=== PATIENT | female | born 1985 ===

== ENCOUNTER 2018-02-18 02:16 | Inpatient (IN) | payer OTHER ==
[2018-02-18] MEDS ORDERED: PENICILLIN 5 MU in NA CHLORIDE 0.9% 100 ML IV ONE (03:28)
[2018-02-18] MEDS ORDERED: PENICILLIN G POT 5 MU/100 ML BAG IV ONE (03:40)
[2018-02-18 04:07] LABS: RPR Titer ND
[2018-02-18 04:11] LABS: Absolute Lymphocytes (CBC) 2.1 K/uL (0.7-4.9); Absolute Monocytes 0.8 K/uL (0.1-1.3); Absolute Neutrophil 11.8 K/uL (1.8-8.0); Basophils % 0.4 % (0-1.3); Eosinophils % 0.9 % (0-4.4); Hematocrit 34.7 % (36.0-45.0); MCH 28.4 pg (27.0-35.0); MCV 83.9 fL (80-100); MPV 8.3 fL (7.6-11.3); Monocytes % 5.6 % (3.3-12.3); RBC Red Blood Cell Count 4.13 M/uL (3.86-4.86)
[2018-02-18 04:21] VITALS: BP 119/81; TEMP 97.8; BMI 36.8
[2018-02-18 04:21] LABS: Glucose Level 94 mg/dL (74-106)
[2018-02-18] MEDS ORDERED: OXYTOCIN/LR 20 UNIT/1,000 ML BAG IV SCH (05:30)
[2018-02-18] MEDS ORDERED: Ringers Lactate 1,000 ML IV ONE (05:45)
[2018-02-18] MEDS ORDERED: Ringers Lactate 1,000 ML IV SCH (07:00)
[2018-02-18] MEDS ORDERED: BETAMET ACET/BETAMET NA PH 6 MG/ML VIAL IM ONE (07:28)
[2018-02-18] MEDS ORDERED: PENICILLIN 2.5 MU in NA CHLORIDE 0.9% 100 ML IV SCH ×4 (07:40)
[2018-02-18] MEDS ORDERED: BUTORPHANOL 1 MG/ML INJ IV ONE (08:15)
--- NOTE | 2018-02-18 09:11 | RAD REPORT ---
EXAM DESCRIPTION: US - OB Complete - 02/18/2018 3:39 am CLINICAL HISTORY: Premature rupture of membranes age. COMPARISON: No comparisons FINDINGS: A single cephalic presenting gestation is identified. Heart rate normal. The intracranial contents and spine are grossly normal. A normal stomach bubble is noted. The f etal kidneys, three-vessel cord, four-chamber view the heart and bladder not well assessed due to positioning and advanced gestational age. measurements are as follows: BPD:8.7 Centimeters 35 weeks 0 days HC:32.4 Centimeters 36 weeks 5 days AC:30.9 Centimeters 34 weeks 6 days HL:5.6 Centimeters 32 weeks 5 days FL:6.3 Centimeters 32 weeks 5 days The estimated gestational age (EGA) is 34 weeks 3 days with an DANAE of03/29/2018. The placenta is grade 1-2, maternal right in location. No placenta previa. The amniotic fluid index is 10.6 cm, with largest pocket 5.7 cm. The maternal adnexa show no worrisome findings. IMPRESSION: 1. Single, cephalic gestation with an EGA of 34 weeks 3 days and an DANAE of the 8. 2. No gross abnormalities are identifiable. Anatomic assessment was limited by advanced gestati onal age. 3. Grade 1-2, maternal right placenta. 4. Amniotic fluid index is10.6 cm, with largest pocket5.7 cm -- considered within normal limits.
[2018-02-18] MEDS ORDERED: TERBUTALINE SULF 1 MG/1ML SQ ONE (09:17)
--- NOTE | 2018-02-18 09:30 | P.HP ---
Certification for Inpatient Patient admitted to: Observation Patient will require the following post-hospital care: None Practitioner: I am a practitioner with admitting privileges, knowledge of patient current condition, hospital course, and medical plan of care. Services: Services provided to patient in accordance with Admission requirements found in Title 42 Section 412.3 of the Code of Federal Regulations Patient History Date of Service: 02/18/18 Reason for admission: Leaking fluid History of Present Illness: 32-year-old G 1 at 34 weeks and 5 days per reported due date presents for leakage of fluid. She has not had any care but was seen by a family doctor a couple of times this (due to insurance issues and cost). Her reported due date is March 27, 2018. She denies health issues or problems during this until now. She does not speak Slovak and preferred language is Bengali. Allergies No Known Allergies Allergy (Unverified 02/18/18 02:54) Home Medications: Vitamin [ VITAMIN*] 1 tab PO DAILY 02/18/18 - Past Medical/Surgical History Has patient received pneumonia vaccine in the past: No Diabetic: No Past Medical History: Patient denies medical history Past Surgical History: Patient denies surgical history - Social History Smoking Status: Never smoker Alcohol use: No CD- Drugs: No Caffeine use: No Place of Residence: Home Review of Systems 10-point ROS is otherwise unremarkable Physical Examination - Vital Signs Temperature: 97.8 F Blood Pressure: 119/81 Pulse: 108 Respirations: 18 - Physical Exam General: Alert, In no apparent distress, Oriented x3 Respiratory: Other (Normal effort) Cardiovascular: Normal pulses Musculoskeletal: No swelling, No tenderness Integumentary: No rashes, No breakdown Neurological: Normal speech, Cranial nerves 3-12 intact - Studies Laboratory Data (last 24 hrs) 02/18/18 03:17: Glucose 94 02/18/18 03:17: WBC 14.9 H, Hgb 11.7 L, Hct 34.7 L, Plt Count 233 Female Exam - Female Pelvic Cervix: Dilation (1), Effacement (Tick), station (High) - Obstetrics heart rate tracing: Category 1 Contractions: Frequency (Irregular) Amniotic membrane: SROM (Clear fluid) Assessment and Plan - Problems (Diagnosis) (1) premature rupture of membranes Current Visit: Yes Status: Acute Plan: Patient admitted to L&D for prima term premature rupture of membranes. Due to history of a no care, Ob panel and HIV testing was ordered. Dating ultrasound was also done on admission showing 34 weeks and 3 day in cephalic presentation, no placenta previa. Review vital signs shows some mild range blood pressures. She has been given 2 doses of PCN-G IV for GBS prophylaxis and one dose of steroids for FLM. Due to level 1 nursery, 3rd trimester U/S dating, and possible associated high risk in infant, request was made for transfer of patient for delivery at the center with higher level of care. Patient presentation and history was discussed with Dr. Holman who accepted transfer. She will be transported by ground. There has not been cervical change since admission. Keep on continuos monitoring until transfer. - Advance Directives Does patient have a Living Will: No Does patient have a Durable POA for Healthcare: No
[2018-02-19 21:48] LABS: RPR (Rapid Plasma Reagin) NON-REACT (NON-REACT)
[2018-02-20 20:13] LABS: HBsAG Nonreactive (Nonreactive)
== END 2018-02-18 10:50 | disposition short-term general hospital (02) | DRG 782 ==
LOC: L&D 02:16 → 2ND-WC 02:58
PROVIDERS: ADMIT Obstetrics & Gynecology; ATTEND Obstetrics & Gynecology
DX: O42.913 Preterm premature rupture of membranes, unspecified as to length of time between rupture and onset of labor, third trimester (principal); Z3A.34 34 weeks gestation of pregnancy
CPT/HCPCS: 36415; 76805; 82947; 85025; 86592; 86762; 86850; 86900; 86901; 87340; G0433; J0595; J2590; J3105